=== PATIENT | male | born 1945 | race Caucasian/White ===

== ENCOUNTER 2021-02-17 07:54 | Day surgery (SDC) | payer MEDICARE ==
[2021-02-17] MEDS ORDERED: Sodium Chloride 0.9% 1,000 ML IV SCH (08:30)
[2021-02-17] MEDS ORDERED: Propofol 200 MG/20 ML SDV ONE (08:32)
[2021-02-17] MEDS ORDERED: fentaNYL 100 MCG/2 ML SDV ONE (08:32)
--- NOTE | 2021-02-17 14:15 | OR ---
DATE OF PROCEDURE: 02/17/2021 SURGEON: Shane Mcgrath MD PROCEDURE: Colonoscopy. FINDINGS: Normal colonoscopy. COMPLICATIONS: None. SKIING INSTRUCTOR: None. ANESTHESIA: MAC. PREOPERATIVE DIAGNOSIS: Screening colonoscopy. POSTOPERATIVE DIAGNOSIS: Screening colonoscopy. RISKS: Risks, benefits, alternatives, and limitations including, but not limited to infection, bleeding, perforation, false positives and false negatives were explained to the patient and they wished to proceed. PROCEDURE IN DETAIL: The patient was placed in the left lateral decubitus position. A digital rectal exam was performed without abnormality. The scope was introduced and advanced atraumatically to the ileocecal valve. A photo was taken of appendiceal orifice. The scope was brought back to the ascending, transverse, descending colon, and retroflexed. No evidence of old or new blood. No masses. No polyps. Greater than 8 minutes was spent removing the scope. No colitis. The prep was acceptable, approximately 90% of luminal surface could be seen. The patient tolerated procedure well. Shane Mcgrath MD /[id number]
== END 2021-02-17 11:19 | disposition home or self-care (01) ==
LOC: JP.SDS 07:54
PROVIDERS: ATTEND Surgery
DX: Z12.11 Encounter for screening for malignant neoplasm of colon (principal); I10 Essential (primary) hypertension; Z86.010 Personal history of colon polyps; Z20.822 Contact with and (suspected) exposure to COVID-19
CPT/HCPCS: C9803; G0105; J2704; J3010; J7030

== ENCOUNTER 2023-12-03 07:26 | Day surgery (SDC) | payer MEDICARE ==
[~2023-12-03 07:26] MED LIST: Propofol 200 MG/20 ML SDV ONE; fentaNYL 50 MCG/ML SDV ONE
[2023-12-03] MEDS: Sodium Chloride 0.9% 1,000 ML IV SCH (08:18)
== END 2023-12-03 11:45 | disposition home or self-care (01) ==
LOC: JP.SDS 07:26
PROVIDERS: ATTEND Surgery
DX: K25.9 Gastric ulcer, unspecified as acute or chronic, without hemorrhage or perforation (principal); I10 Essential (primary) hypertension
CPT/HCPCS: 43239; J2704; J3010; J7030